=== PATIENT | female | born 1975 | race Caucasian/White ===

== ENCOUNTER 2018-11-12 20:51 | Emergency (ER) | payer OTHER, SELFPAY ==
[2018-11-12 20:52] VITALS: BP 171/93; PULSE 109; RESP 18; TEMP 36.6; O2SAT 100; BMI 29.1
--- NOTE | 2018-11-12 21:11 | US_ITS ---
STUDY: ULTRASOUND OF THE FEMALE PELVIS - COMPLETE REASON FOR EXAM: Female, 43 years old. Menorrhagia LMP: Bleeding with clots LMP 11/10/2018 TECHNIQUE: Transvaginal TECHNICAL QUALITY: Adequate. COMPARISON: None. FINDINGS: The uterus is retroverted and is in a midline position. The uterus measures 7.2 x 6.2 x 2.1 cm. There is a Nabothian cyst of the cervix. The endometrium measures up to 1.4 cm in thickness, and is hyperechoic but There is a fluid distended appearance of the endometrial canal level of the fundus. There is no demonstrated myometrial mass. I.U.D. - The patient does not have an I.U.D. The right ovary is visualized. The right ovary measures 3.1 x 1.7 x 1.6 cm. There is a small complex ovarian cyst measuring 1.6 x 1.2 x 0.9 cm. There is no visualized right adnexal mass or complex lesion. There is normal arterial and normal venous vascularity. The left ovary is visualized. The left ovary measures 4.1 x 3.3 x 2.6 cm. There is no left ovarian cyst or ovarian mass. There is a left ovarian cyst measuring 2.5 x 2.6 x 2.6 cm. There is normal arterial and normal venous vascularity. There is minimal fluid in the cul-de-sac. The bladder is decompressed during the transvaginal study. Polycystic ovary disease: No. US/Transvaginal Non- IMPRESSION: There is a thickened appearance of the endometrium measuring up to 1.4 cm including the distended fluid filled appearance of the endometrium. Given that the patient's last menstrual period was 11/10/2018 a thinner endometrium would be expected. 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 Benign-appearing left ovarian cyst Small complex right ovarian follicle. No visualized portion. Small amount of free fluid. Electronically Signed: Barbara Mc MD at 22:20 EDT Tel , Service support ,
[2018-11-12 21:29] LABS: Absolute Lymphocyte Count 1.99 X10^3/ul (0.83-4.51); Absolute Neutrophil Count 4.4 X10^3/uL (2.0-7.7); Basophil# 0.04 X10^3/uL; Basophil% 0.6 % (0-1); Eosinophil# 0.13 X10^3/uL; Eosinophils% 1.8 % (0-5); Hematocrit 32.4 % (37-47); Lymphocyte # 1.99 X10^3/ul (4.0); Lymphocyte % 27.7 % (19-41); Mean Corp Hgb Conc 30.9 g/gl (32-36); Mean Corpuscular Hgb 22.5 pg (27.0-32.0); Mean Corpuscular Volume 72.8 fL (81-99); Mean Platelet Vol. 10.7 fl (6.2-12.0); Monocyte# 0.59 X10^3/uL; Monocyte% 8.2 % (0-10); Neutrophil # 4.42 X10^3/uL (2.7-7.7); Neutrophil % 61.6 % (47-70); Platelet Count 276 K/mm3 (150-450); RBC Distribution Width CV 16.6 % (11.6-14.6); RBC Distribution Width SD 44.3 fl (35.1-43.9); Red Blood Count 4.45 M/mm3 (4.2-5.4); White Blood Count 7.2 K/mm3 (4.4-11.0)
[2018-11-12 21:36] LABS: Differential Indicated SCAN CRITERIA MET; POSITIVE COUNT NO; POSITIVE DIFFERENTIAL NO; POSITIVE MORPHOLOGY YES
[2018-11-12 21:39] LABS: Internal QC Validated? YES +Cl - CLEAR BKGD; Pregnancy, Serum, hCG Quali. NEGATIVE Negative
[2018-11-12 21:52] LABS: Differential Comment SCANNED
--- NOTE | 2018-11-12 22:43 | ED.VISSUMM ---
- ER Visit Summary Date of Service: 11/12/18 Chief Complaint: Abnormal vaginal bleeding History of Present Illness: The patient is a 43 F who presents emergency department with heavy vaginal bleeding. The patient states that on Thursday she started to have heavy bleeding and a large clot. Eventually this stopped. She states that it was time for her regular cycle to begin. She had some spotting on but then last night the bleeding got heavier. Today about 1 hour prior to arrival she again had some large clots. She states this resulted in her using a couple pads per hour. She is G5, P5 Ab0. She has no local PECAN CLEANER care. She is recently moved from [facility]. History of hypertension. She takes no hormonal supplementation. She has never had this problem before. Physical Examination: Afebrile vital signs are stable. Initial heart rate in triage 106 on my examination will sit in the bed is 92. Gen: Well-nourished well-developed Head: Normocephalic atraumatic Eyes: Perrl EOMI ENT: TMs clear no rhinorrhea moist mucous membranes Neck: Supple no lymphadenopathy no JVD nontender CVS: Regular rate rhythm no murmurs normal S1-S2 Respiratory: No distress clear to auscultation bilaterally chest nontender Abdomen: Soft nontender nondistended normal bowel sounds no masses Back: Nontender Extremity: Nontender no edema Skin: Normal color no rash Neuro: alert orientated ?3 CN II-XII intact normal strength sensation reflexes gait cerebellar Psych: Normal affect normal mood Test Results: Hemoglobin of 10. Platelet 276. test is negative. Ultrasound was obtained of the pelvis : There is a thickened appearance of the endometrium measuring up to 1.4 cm including the distended fluid filled appearance of the endometrium. Emergency Department Course and Treatment: I spoke with Chichi Handy who is on-call for Dr. Gill. They are happy to see her on Thursday. At this point she is not orthostatic. I offered the patient Provera to help stabilize the lining until she can be seen. She has accepted. She was given return instructions to include but not limited to appearing pale, lightheaded, near syncopal/syncopal. Impression: 1. Menorrhagia This note was generated with [employer] dictation software. It may contain incorrect words, spelling, and punctuation that were not noted in review of the chart prior to signing ED Disposition - Plan for ED Patient: Disposition: Home or Assisted Living Instructions: Menorrhagia Prescriptions: Medroxyprogesterone Acetate [Provera] 10 mg PO DAILY #10 tab Prescription Printed Referrals: Shira Gill DO [STAFF PHYSICIAN] - (Call on Thursday to be seen on Thursday please tell them you are in the emergency department and we spoke with the on-call physician)
[2018-11-12 22:52] VITALS: BP 155/113; PULSE 104; RESP 24; O2SAT 99
[2018-11-12 23:42] VITALS: BP 149/92; PULSE 80; RESP 12; O2SAT 97
== END 2018-11-12 23:44 | disposition home or self-care (01) ==
PROVIDERS: Emergency Provider Emergency Medicine
DX: N92.0 Excessive and frequent menstruation with regular cycle (principal); R93.89 Abnormal findings on diagnostic imaging of other specified body structures; I10 Essential (primary) hypertension
CPT/HCPCS: 76830; 84703; 85025; 93976; 99285; A4216

== ENCOUNTER 2019-12-14 18:14 | Emergency (ER) | payer OTHER, SELFPAY ==
[2019-12-14 18:19] VITALS: BP 176/100; PULSE 86; RESP 16; TEMP 36.8; O2SAT 100; BMI 33.0
--- NOTE | 2019-12-14 18:48 | EKG12_ITS ---
Test Reason : PALP Blood Pressure : / mmHG Vent. Rate : 070 BPM Atrial Rate : 070 BPM P-R Int : 128 ms QRS Dur : 088 ms QT Int : 384 ms P-R-T Axes : 042 019 037 degrees QTc Int : 414 ms Normal sinus rhythm Normal ECG Confirmed by TRISHA MONTALVO, UNIQUE ([id number]), advertising editor SOHEILA CISNEROS ([id number]) on 12/19/2019 9:29:35 AM Referred By: HEENA Confirmed By:ADELIA RICO MD
--- NOTE | 2019-12-14 18:49 | ED.DCSUM_ITS ---
History of Present Illness Chief Complaint: Palpitations Informant: Patient Onset: Today Current Severity: Mild Maximum Severity: Moderate Narrative: Patient present secondary to palpitations. She is been undergoing work-up with her PCP at the [facility] for similar. She was recently diagnosed with Dafne's thyroiditis and is supposed to be scheduling an echocardiogram. She said she had an EKG in the office last week that was unremarkable. This morning she felt like her heart was skipping some beats. She cleared her throat to try to stop the sensation in her heart started racing. This lasted approximately half an hour. She took her labetalol and sat down to rest to get symptoms to subside. This evening she still feels very tired and wanted to be checked out. She denies chest pain. She does not check her blood pressure at home on a regular basis. - Past Medical History (1) Hypertension Status: Chronic (2) Dafne's thyroiditis Status: Chronic Past Medical History - Allergies and Home Meds Allergies/Adverse Reactions: Allergies codeine Adverse Reaction (Verified 11/12/18 20:52) Other Sulfa (Sulfonamide Antibiotics) Adverse Reaction (Verified 11/12/18 20:52) Swelling Primary Care Physician: Care Physician,No Primary [NON-STAFF] - Prior records reviewed: Yes Smoking Status: Never smoker Review of Systems General: Denies: Chills, Fever Eyes: Denies: Visual changes - bilaterally ENT: Denies: Bilateral ear pain Cardiovascular: Reports: Palpitations, Heart racing. Denies: Chest pain Respiratory: Denies: Dyspnea, Cough Gastrointestinal: Denies: Abdominal pain, Nausea, Vomiting, Diarrhea Genitourinary: Denies: Dysuria Musculoskeletal: Denies: Swelling, Extremity Pain Skin: Denies: Rash Neurological: Denies: Headache Hematologic: Denies: Easy bruising, Easy bleeding Allergy: Denies: Uticaria Physical Exam Vital Signs/Narrative: Vital Signs Temp Pulse Resp BP Pulse Ox 12/14/19 18:19 98.2 F 86 16 176/100 H 100 Inital Vital Signs reviewed: Yes General: Well nourished, Well developed Head: Normocephalic ENT: Moist mucous membranes Neck: Supple Cardiovascular: Regular rate, Regular rhythm Respiratory: No distress, CTA bilaterally Abdomen: Soft, Nontender, Normal bowel sounds Extremities: Nontender Skin: Normal color, No rash Neurological: Alert, Oriented x3 Psychological: Normal affect Diagnostic/Tx/Re-eval Impressions Chest X-Ray 12/14/19 19:00 IMPRESSION: Normal x-ray examination of the chest. Electronically Signed: Phillip Donald DO at 19:21 EDT Tel [phone], Service support , 12/14/19 19:00 Chest 1 View (Portable) [RAD] Stat Laboratory Results 12/14/19 12/14/19 12/14/19 20:45 20:45 20:45 WBC 7.3 RBC 4.85 Hgb 13.7 Hct 41.0 MCV 84.5 MCH 28.2 MCHC 33.4 RDW Std Deviation 39.1 RDW Coeff of Val 12.8 Plt Count 255 MPV 10.3 Immature Gran % (Auto) 0.300 Neut % (Auto) 72.2 H Lymph % (Auto) 20.0 [place] % (Auto) 5.8 Eos % (Auto) 1.0 Baso % (Auto) 0.7 Absolute Neuts (auto) 5.2 Absolute Lymphs (auto) 1.45 Nucleated RBC % 0 D-Dimer Quant (PE/DVT) 0.32 Sodium 139 Potassium 3.9 Chloride 110 H Carbon Dioxide 25.0 Anion Gap 4 L BUN 8 Creatinine 0.86 Estim Creat Clear Calc 73.55 Est GFR (MDRD) Af Amer 91 Est GFR (MDRD) Non-Af 75 BUN/Creatinine Ratio 9.3 L Glucose 99 Calcium 9.9 Troponin I < 0.015 TSH 1.14 Serum , Qual 12/14/19 20:45 WBC RBC Hgb Hct MCV MCH MCHC RDW Std Deviation RDW Coeff of Val Plt Count MPV Immature Gran % (Auto) Neut % (Auto) Lymph % (Auto) [place] % (Auto) Eos % (Auto) Baso % (Auto) Absolute Neuts (auto) Absolute Lymphs (auto) Nucleated RBC % D-Dimer Quant (PE/DVT) Sodium Potassium Chloride Carbon Dioxide Anion Gap BUN Creatinine Estim Creat Clear Calc Est GFR (MDRD) Af Amer Est GFR (MDRD) Non-Af BUN/Creatinine Ratio Glucose Calcium Troponin I TSH Serum , Qual NEGATIVE - EKG Initial EKG Interpretation: Sinus Rhythm - Sinus at 70 with no acute ischemia. - Medical Decision Making Patient has been observed for 3 hours with no evidence of arrhythmia. Patient was encouraged to continue her labetalol. She is to follow-up next week for echocardiogram as planned. She states her doctor did talk to her about a Holter monitor if that is normal. She was encouraged to return for repeat symptoms to see if we can catch an episode while it is happening. She is comfortable with this plan. ED Disposition - Plan for ED Patient: Disposition: Home or Assisted Living Diagnosis: Palpitations Instructions: ED Palpitations Additional Instructions: Follow-up with your nurse practitioner at [facility] as discussed.
--- NOTE | 2019-12-14 19:00 | RAD_ITS ---
STUDY: X-RAY CHEST REASON FOR EXAM: Female, 44 years old. Palpitations. TECHNIQUE: Single AP portable view of the chest. COMPARISON: None. FINDINGS: Telemetry wires overlie the chest. The lungs are clear and expanded. There is no demonstrated pleural abnormality. Normal size heart. Normal mediastinum and keshav. Normal visualized pulmonary arteries. Normal visualized aortic arch and descending thoracic aorta. Normal visualized thoracic spine. Normal visualized ribs, clavicles, and shoulders. There is no demonstrated abnormality of the visualized soft tissue structures of the upper abdomen. RAD/Chest 1 View (Portable) IMPRESSION: Normal x-ray examination of the chest. Electronically Signed: Phillip Donald DO at 19:21 EDT Tel [phone], Service support ,
[2019-12-14 20:35] VITALS: PULSE 66; RESP 15; O2SAT 98
[2019-12-14] MEDS: 0.9% Normal Saline 1,000 ML 150 ML IV (20:51)
[2019-12-14 20:54] LABS: Absolute Lymphocyte Count 1.45 X10^3/uL (0.83-4.51); Absolute Neutrophil Count 5.2 X10^3/uL (2.0-7.7); Basophil# 0.05 X10^3/uL; Basophil% 0.7 % (0-1); Eosinophil# 0.07 X10^3/uL; Hemoglobin 13.7 g/dL (12.0-15.0); Lymphocyte # 1.45 X10^3/ul (4.0); Mean Corp Hgb Conc 33.4 g/dL (32-36); Mean Corpuscular Hgb 28.2 pg (27.0-32.0); Mean Corpuscular Volume 84.5 fL (81-99); Mean Platelet Vol. 10.3 fl (6.2-12.0); Monocyte# 0.42 X10^3/uL; Monocyte% 5.8 % (0-10); NRBC Flagged by Analyzer 0 % (0-5); Neutrophil # 5.24 X10^3/uL (2.7-7.7); Neutrophil % 72.2 % (47-70); Platelet Count 255 K/mm3 (150-450); RBC Distribution Width CV 12.8 % (11.6-14.6); RBC Distribution Width SD 39.1 fl (35.1-43.9); Red Blood Count 4.85 M/mm3 (4.2-5.4); White Blood Count 7.3 K/mm3 (4.4-11.0)
[2019-12-14 21:06] LABS: D-Dimer Quantitative (DVT/PE) 0.32 FEU/ug/m (0.27-0.49)
[2019-12-14 21:14] LABS: Internal QC Validated? YES +Cl - CLEAR BKGD; Pregnancy, Serum, hCG Quali. NEGATIVE Negative
[2019-12-14 21:21] LABS: Anion Gap 4 (5-15); BUN 8 mg/dL (7-18); BUN/Creat Ratio 9.3 RATIO (10-20); Calcium,Total 9.9 mg/dL (8.5-10.1); Chloride 110 mmol/L (98-107); Creatinine, Serum 0.86 mg/dL (0.55-1.02); EST Glomerular Filtration Rate 75 mL/min (>60); Est Glom Filt Rate - Afr Amer 91 mL/min (>60); Estimated Creatinine Clearance 73.55 ml/min; Glucose 99 mg/dL (74-106); Potassium 3.9 mmol/L (3.5-5.1); Sodium Level 139 mmol/L (136-145); Thyroid Stim Hormone (TSH) 1.14 uIU/mL (0.358-3.74)
[2019-12-14 21:49] VITALS: BP 151/91; PULSE 71; RESP 16; O2SAT 99
== END 2019-12-14 21:51 | disposition home or self-care (01) ==
PROVIDERS: Emergency Provider Emergency Medicine; PCP Family Medicine
DX: R00.2 Palpitations (principal); E06.3 Autoimmune thyroiditis; I10 Essential (primary) hypertension; Z79.899 Other long term (current) drug therapy
CPT/HCPCS: 71045; 80048; 84443; 84484; 84703; 85025; 85379; 93005; 96360; 99284; J7030; A4216

== ENCOUNTER → 2019-12-26 13:52 | Outpatient (CLI) | payer OTHER, SELFPAY ==
[2019-12-14 18:19] VITALS: BMI 33.0
--- NOTE | 2019-12-26 13:56 | ECHOCS_ITS ---
Reason For Study: Dizziness Procedure This was a 2D Doppler, Color Flow transthoracic echocardiogram. The study was technically difficult. Contrast injection was performed. Exam performed in department. Left Ventricle Normal LV size. Left ventricular systolic function is normal. The estimated ejection fraction is 65 %. Normal diastology for age. No regional wall motion abnormalities noted. Right Ventricle Normal RV size. Normal systolic function. Atria Normal left atrium. Normal right atrium. Mitral Valve Normal mitral valve. Tricuspid Valve Normal tricuspid valve. Aortic Valve Trisinus/trileaflet aortic valve. Pulmonic Valve Normal pulmonic valve. Great Vessels Normal aortic root. The pulmonary artery is normal size. Normal inferior vena cava. Pericardium/Pleural No pericardial effusion. Medication 22 gauge I.V. with prn adaptor inserted into left arm. Diluted definity 3ml given slow IV push to enhance endocardial definition. Performed a rapid injection of agitated mix of 9 cc saline and 1cc air to assess for atrial septal defect. MMode/2D Measurements & Calculations LVIDd: 5.2 cm IVSd: 1.1 cm Ao root diam: 2.9 cm LVIDs: 3.4 cm LVPWd: 0.76 cm LA dimension: 3.7 cm RVDd: 3.0 cm FS: 34.2 % LAV(MOD-bp): 61.3 ml LA A4 area: 20.5 cm2 RA A4 area: 14.5 cm2 LAV(MOD-bp) Indexed: 31.5 ml/m2 LAV(MOD-sp2): 57.7 ml LAV(MOD-sp4): 62.7 ml Time Measurements MV dec time: 0.22 sec Doppler Measurements & Calculations MV E max cristopher: 88.7 cm/sec Lat Peak E' Cristopher: 12.3 cm/sec Med Peak E' Cristopher: 7.4 cm/sec MV A max cristopher: 65.7 cm/sec E/E' lat: 7.2 E/E' med: 12.1 MV E/A: 1.4 MV V2 max: 86.7 cm/sec MV P1/2t max cristopher: 85.0 cm/sec Ao V2 max: 166.6 cm/sec MV max P.0 mmHg MV P1/2t: 79.5 msec Ao max P.1 mmHg MV V2 mean: 54.1 cm/sec MV dec slope: 313.0 cm/sec2 MV mean P.3 mmHg MV V2 VTI: 25.7 cm MVA(P1/2t): 2.8 cm2 LV V1 max: 140.7 cm/sec PA V2 max: 97.3 cm/sec LV V1 max P.9 mmHg Interpretation Summary Normal LV size. Left ventricular systolic function is normal. The estimated ejection fraction is 65 %. The study was technically difficult. Contrast injection was performed. Ordering Physician: Clive Red Referring Physician: uW Nassar Performed By: Hayden Bower RCS
== END ==
LOC: CVS 13:54
PROVIDERS: PCP Family Medicine; Referring Provider Nurse Practitioner Family; Visit Provider Nurse Practitioner Family
DX: R42 Dizziness and giddiness (principal); R00.2 Palpitations
CPT/HCPCS: 93306; Q9957; A4216; C8929